=== PATIENT | female | born 1975 | race Caucasian/White ===

== ENCOUNTER → 2016-07-10 | Outpatient (CLI) | payer OTHER ==
[~2016-07-10] MED LIST: AMITRIPTYLINE50 MG PO; ANAPROX DS550 MG PO; ATIVAN1 MG PO; AUGMENTIN 875 M1 TAB PO; CITALOPRAM40 MG PO; CLARITIN10 MG PO; DARVOCET N 1001 TAB PO; DOLOPHINE5 MG PO; GABAPENTIN TAB600 MG PO; K-Dur 20MEQ20 MEQ PO; LASIX40 MG PO; LEVAQUIN750 MG PO; LOTEMAX 0.5% 1010 ML OPH; MIRAPEX0.125 MG PO; NEXIUM20 MG PO; NEXIUM40 MG PO; POTASSIUM20 MEQ PO; PRILOSEC OTC20 MG PO; PROTONIX20 MG PO; RESTASIS0.05% OP; TRAMADOL HYDRO100 MG PO; ZITHROMAX Z PA250 MG PO; ZOFRAN ODT4 MG PO
--- NOTE | ~2016-07-10 | ST ---
[place], [place] EXERCISE STRESS TEST REPORT NAME: ZENON OSBORNE UNIT #: [id number] ROOM: DOCTOR: TATIANA HENSLEY,CATHY BIRTHDATE: [birth year] DOS: 07/10/2016 TREADMILL STRESS TEST REFERRING PHYSICIAN: Dr. Spencer. REASON FOR TEST: Evaluation of chest pain. PHYSICAL EXAMINATION NECK: Supple. LUNGS: Clear anteriorly. HEART: Regular rhythm. PROTOCOL: Irwin protocol. Total stress time 7 minutes 34 seconds, maximum heart 162, which is 89% of target peak blood pressure 146/84, adequate response. Total mets 8.8 mets. Burden treadmill score of +7. Symptoms: The patient is chest pain free, developed some back pain. EKG: Resting EKG sinus rhythm. Stress EKG showed no ischemia, no arrhythmias. CONCLUSION: The patient is chest pain free. EKG nonischemic. POST-STRESS COMPLICATIONS: None. CATHY SIMPSON MD CM:STRESS:EXERCISE STRESS TEST REPORT [id number] CATHY SIMPSON MD
== END | disposition home or self-care (01) ==
LOC: CARD 01:45
DX: I07.1 Rheumatic tricuspid insufficiency (principal); I37.1 Nonrheumatic pulmonary valve insufficiency; R07.2 Precordial pain; R06.02 Shortness of breath; R07.89 Other chest pain; R06.09 Other forms of dyspnea; J90 Pleural effusion, not elsewhere classified

== ENCOUNTER → 2018-06-30 | Outpatient (CLI) | payer BC ==
[2018-06-30 13:38] LABS: BASO % 0.4 % (0.0-1.0); EOS # 0.2 10*3/uL (0.0-0.4); EOS % 3.3 % (1.0-4.0); HEMATOCRIT 36.7 % (37.0-47.0); HEMOGLOBIN 11.6 g/dl (12.0-16.0); LYMPH % 36.7 % (27.0-41.0); MEAN CELL VOLUME 88.2 fl (81.0-99.0); MEAN CORPUSCULAR HGB 27.9 pg (27.0-31.0); MEAN CORPUSCULAR HGB CONC 31.6 g/dl (33.0-37.0); MEAN PLATELET VOLUME 10.5 fl (9.6-12.3); MONO # 0.4 10*3/uL (0.1-1.0); MONO % 6.8 % (3.0-9.0); NEUT # 2.9 10*3/uL (2.3-7.9); NEUT % 52.4 % (47.0-73.0); PLATELET COUNT AUTOMATED 171 10*3/uL (130-400); RED BLOOD COUNT 4.16 10*6/uL (4.10-5.10); RED CELL DISTRI WIDTH 15.1 % (0-14.5); WHITE BLOOD COUNT 5.5 10*3/uL (4.8-10.8)
[2018-06-30 14:07] LABS: ALBUMIN 3.8 gm/dl (3.1-4.5); ALKALINE PHOSPHATASE 72 U/L (45-117); BUN 6 mg/dl (7-24); CHLORIDE 106 mmol/L (98-107); CREATININE 0.81 mg/dL (0.55-1.02); POTASSIUM 3.7 mmol/L (3.5-5.1); SGOT/AST 14 IU/L (3-35); SGPT/ALT 15 U/L (12-78); SODIUM 138 mmol/L (136-145); TOTAL PROTEIN 7.2 gm/dL (6.4-8.2)
== END | disposition home or self-care (01) ==
LOC: LAB 12:50
PROVIDERS: Dermatology
DX: B35.1 Tinea unguium (principal); Z79.84 Long term (current) use of oral hypoglycemic drugs

== ENCOUNTER → 2018-11-25 | Outpatient (CLI) | payer BC ==
[2018-11-25 10:51] LABS: FREE T4 1.02 ng/dl (0.76-1.46)
[2018-11-25 10:57] LABS: THYROID STIM HORMONE (HS) 1.7 uIU/ml (0.358-4.75)
[2018-11-25 11:13] LABS: VITAMIN D, 25-HYDROXY 44.9 ng/mL (30-100)
[2018-11-26 05:06] LABS: THYROID PEROXIDASE (TPO) AB 190 IU/mL (0-34)
[2018-11-26 15:08] LABS: THYROGLOBULIN ANTIBODY <1.0 IU/mL (0.0-0.9)
== END | disposition home or self-care (01) ==
LOC: LAB 10:01
PROVIDERS: Internal Medicine
DX: E55.9 Vitamin D deficiency, unspecified (principal); R53.83 Other fatigue; E06.9 Thyroiditis, unspecified